=== PATIENT | female | born 1975 | race Caucasian/White ===

== ENCOUNTER → 2016-06-27 | Outpatient (CLI) | payer BC ==
[2014-10-29 06:05] VITALS: BP 135/85
--- NOTE | 2016-06-27 13:08 | KCIC ---
Bilateral diagnostic digital mammograms with CAD: HISTORY Left lateral breast pain for few months. Lump for years increasing in size. COMPARISON Comparison is made to previous examinations dated 03/30/2014. FINDINGS Breast density category C. The skin and nipples show no abnormalities. No abnormal lymph nodes are seen in the axilla. The breast parenchyma shows heterogeneous density. There is suggestion of a small nodular density at the 2 o'clock B position. This will be further evaluated with ultrasound. There are no other dominant masses, suspicious calcifications or architectural distortions. IMPRESSION Small nodular density at the 2 o'clock B position of the left breast. Ultrasound to follow. This study was interpreted with the benefit of Computerized Aided Detection (CAD). Mammography is not 100% sensitive in detecting breast cancer. Therefore, a self breast exam and a clinical breast exam are very important. A negative mammogram does not negate a clinically suspicious finding and should not result in a delay in biopsying a clinically suspicious abnormality. BI-RADS category 0: Incomplete. Ultrasound to follow. Left breast ultrasound: Comparison is made to previous study dated 07/16/2012. Ultrasound examination was performed in the area of the upper outer quadrant. At the 12 o'clock position 7 centimeters from the nipple in the in the area of clinical concern per patient, there is some dense fibroglandular tissue with some minimal fibrocystic type changes present. In the 2 o'clock position 6 centimeters from the nipple, there is a small 3.7 millimeter fibrocystic type lesion present. No other cystic or solid lesions are seen. No abnormal appearing lymph nodes are seen in the axilla. Impression: Dense fibroglandular tissue in the area of clinical concern at the 12 o'clock position. Small 3.7 millimeter fibrocystic type lesion at the 2 o'clock position which corresponds to a similar lesion seen previously. No suspicious abnormalities are seen. Recommend re-evaluation of the left breast in 6 months with mammograms and ultrasound. BI-RADS category 3: Probably benign. This patient's information has been entered into a reminder system for the patient to be notified with the results of this examination and a target date for her next mammograms. Electronically signed by: Reyna Coyne MD (Jun 27, 2016 13:05:55)
== END | disposition home or self-care (01) ==
LOC: KCIC MAMMO 08:14
PROVIDERS: ATTEND Nurse Practitioner
DX: N64.4 Mastodynia (principal)
CPT/HCPCS: 76641; G0204; 77066

== ENCOUNTER 2019-01-08 13:28 | Emergency (ER) | payer BC ==
[~2019-01-08] VITALS: Ht 162.6 cm; Wt 127.0 kg
--- NOTE | 2019-01-08 14:16 | RAD ---
EXAM: Left knee, 3 views. HISTORY: Pain. COMPARISON: None. FINDINGS: 3 views of left knee are obtained. There is no fracture, dislocation or subluxation. There is patellar spurring. There is trace joint fluid. IMPRESSION: Mild patellofemoral compartment osteoarthritis. No acute osseous finding. Electronically signed by: Génesis Tavarez MD (01/08/2019 2:13 PM) [facility]
--- NOTE | 2019-01-08 15:21 | PHYS DOC ---
Past Medical History Past Medical History: Arthritis Past Surgical History: Cholecystectomy, Hysterectomy, Tubal ligation Additional Information: 1 PPD Alcohol Use: Occasionally Drug Use: None Adult General Chief Complaint Chief Complaint: KNEE INJURY HPI HPI Patient is a 43 year old female who presents to the ER with complaints of pain behind her left knee and lower left leg swelling for the last 6 weeks. She denies any known injury and states that the pain increases with movement and when she first stands up. She states that the pain is present even at rest. She saw her PCP last week that dx her with arthritis but did not prescribe any medication. Pt denies any recent travel via car or plane. She states she is a daily smoker, but denies any hx of blood clots. Currently she rates her pain an 8/10, she denies any alleviating factors. Review of Systems Review of Systems Constitutional: Denies fever or chills [] Respiratory: Denies cough or shortness of breath [] Cardiovascular: No additional information not addressed in HPI [] Musculoskeletal: see HPI Integument: Denies rash or skin lesions [] Neurologic: Denies headache, focal weakness or sensory changes [] All other systems were reviewed and found to be within normal limits, except as documented in this note. Allergies Allergies Allergies Coded Allergies Type Severity Reaction Last Updated Verified No Known Drug Allergies 10/26/14 No Physical Exam Physical Exam Constitutional: Well developed, well nourished, no acute distress, non-toxic appearance, obese. [] HENT: Normocephalic, atraumatic, bilateral external ears normal, nose normal. [] Eyes: PERRLA, EOMI, conjunctiva normal, no discharge. [] Neck: Normal range of motion, no stridor. [] Cardiovascular:Heart rate regular rhythm Lungs & Thorax: Respirations even and unlabored, no retractions, no respiratory distress Skin: Warm, dry, no erythema, no rash. [] Extremities: No bony TTP, no crepitus, 1+ edema LLE, no cyanosis, no clubbing, ROM intact, no deformity Neurologic: Alert and oriented X 3, normal motor function, normal sensory function, no focal deficits noted. [] Psychologic: Affect normal, judgement normal, mood normal. [] Current Patient Data Vital Signs Vital Signs Date Time Temp Pulse Resp B/P (MAP) Pulse Ox O2 Delivery O2 Flow Rate FiO2 01/08/19 13:46 98.3 96 19 164/100 (121) 98 98.3 EKG EKG [] Radiology/Procedures Radiology/Procedures PROCEDURE: KNEE LEFT 3V EXAM: Left knee, 3 views. HISTORY: Pain. COMPARISON: None. FINDINGS: 3 views of left knee are obtained. There is no fracture, dislocation or subluxation. There is patellar spurring. There is trace joint fluid. IMPRESSION: Mild patellofemoral compartment osteoarthritis. No acute osseous finding.[] PROCEDURE: VENOUS LOWER EXTREMITY LEFT VENOUS LOWER EXTREMITY LEFT History: Pain to left knee. Left lower extremity swelling. Comparison: None. Discussion: Multiple longitudinal and transverse high resolution real-time images of the venous system of left lower extremity were obtained with color and Doppler sampling. The common femoral, superficial femoral, and popliteal veins are all patent and demonstrate normal flow and compressibility. Normal respiratory phasicity and augmentation is present. Peroneal veins not well seen due to patient body habitus. Impression: 1. No evidence of deep vein thrombosis within the left lower extremity. Course & Med Decision Making Course & Med Decision Making Pertinent Labs and Imaging studies reviewed. (See chart for details) [] Dragon Disclaimer Dragon Disclaimer This electronic medical record was generated, in whole or in part, using a voice recognition dictation system. Departure Departure Impression: Primary Impression: Osteoarthritis of left knee Disposition: 01 HOME, SELF-CARE Condition: STABLE Referrals: JESSICA HOLLINGSWORTH NP (PCP) MONIE ABARCA II, MD Patient Instructions: Osteoarthritis Additional Instructions: Fill prescription(s) and use as directed. Recommend application of ice, elevation, and rest of affected extremity. Follow up with Dr. Abacra for further evaluation. Return to the ER if your symptoms worsen. Scripts Naproxen (NAPROXEN) 500 Mg Tablet 1 TAB PO BID PRN for PAIN for 10 Days, #20 TAB 0 Refills Prov: JESSI SOTO CELEBRITY MANAGER 01/08/19 Problem Qualifiers Primary Impression: Osteoarthritis of left knee Osteoarthritis type: unspecified Qualified Codes: M17.12 - Unilateral primary osteoarthritis, left knee JESSI SOTO CELEBRITY MANAGER Jan 08, 2019 15:21
--- NOTE | 2019-01-08 15:31 | RAD ---
VENOUS LOWER EXTREMITY LEFT History: Pain to left knee. Left lower extremity swelling. Comparison: None. Discussion: Multiple longitudinal and transverse high resolution real-time images of the venous system of left lower extremity were obtained with color and Doppler sampling. The common femoral, superficial femoral, and popliteal veins are all patent and demonstrate normal flow and compressibility. Normal respiratory phasicity and augmentation is present. Peroneal veins not well seen due to patient body habitus. Impression: 1. No evidence of deep vein thrombosis within the left lower extremity. Electronically signed by: Raj Mayfield DO (01/08/2019 3:26 PM) [facility]
[2019-01-08] MEDS ORDERED: NAPR-514 PO (15:39)
[2019-01-08 15:55] VITALS: BP 172/101
== END 2019-01-08 15:55 | disposition home or self-care (01) ==
LOC: ER 13:28
DX: M17.12 Unilateral primary osteoarthritis, left knee (principal); M79.89 Other specified soft tissue disorders; M19.90 Unspecified osteoarthritis, unspecified site; F17.200 Nicotine dependence, unspecified, uncomplicated; Z90.49 Acquired absence of other specified parts of digestive tract; Z90.710 Acquired absence of both cervix and uterus; Z98.51 Tubal ligation status
CPT/HCPCS: 73562; 93971; 99284